=== PATIENT | male | born 1990 | race African-American/Black ===

== ENCOUNTER 2018-05-12 17:06 | Emergency (ER) | payer MEDICAID ==
[~2018-05-12] VITALS: Ht 188 cm; Wt 100.0 kg
[2018-05-12 19:19] VITALS: BP 129/82
== END 2018-05-12 19:38 | disposition home or self-care (01) ==
LOC: EMS 17:08
DX: F41.9 Anxiety disorder, unspecified (principal); R20.0 Anesthesia of skin
CPT/HCPCS: 93005; 99283

== ENCOUNTER 2018-05-22 07:51 | Emergency (ER) | payer MEDICAID ==
[~2018-05-22] VITALS: Ht 198.1 cm; Wt 102.3 kg
[2018-05-22] MEDS ORDERED: DEXAMETHASONE SOD PHOS 4 MG/ML 5 ML VIAL IM ONE (09:15)
[2018-05-22] MEDS ORDERED: DiphenhydrAMINE HCL 25 MG CAPSULE PO ONE (09:15)
[2018-05-22 09:34] VITALS: BP 130/78
== END 2018-05-22 09:43 | disposition home or self-care (01) ==
LOC: EMS 07:55
DX: L23.7 Allergic contact dermatitis due to plants, except food (principal); L29.9 Pruritus, unspecified
CPT/HCPCS: 96372; 99283; J1100

== ENCOUNTER 2018-06-02 18:31 | Emergency (ER) | payer MEDICAID ==
[~2018-06-02] VITALS: Ht 198.1 cm; Wt 100.0 kg
[2018-06-02] MEDS ORDERED: MORPHINE SULFATE 4 MG/ML SYRINGE IVP ONE (19:15)
[2018-06-02] MEDS ORDERED: POVIDONE-IODINE 10% 15 ML SOLUTION UD TP ONE (20:15)
[2018-06-02] MEDS ORDERED: BACITRACIN 0.9 GM PACKET OINTMENT TP ONE (20:15)
[2018-06-02] MEDS ORDERED: PERTUSS(ACELL),DIPH,TET VAC/PF 0.5 ML VIAL IM ONE (20:30)
[2018-06-02 22:54] VITALS: BP 130/88
== END 2018-06-02 22:57 | disposition home or self-care (01) ==
LOC: EMS 18:31
DX: S43.52XA Sprain of left acromioclavicular joint, initial encounter (principal); S90.111A Contusion of right great toe without damage to nail, initial encounter; S40.012A Contusion of left shoulder, initial encounter; S80.812A Abrasion, left lower leg, initial encounter; F12.90 Cannabis use, unspecified, uncomplicated; F17.210 Nicotine dependence, cigarettes, uncomplicated; V23.4XXA Motorcycle driver injured in collision with car, pick-up truck or van in traffic accident, initial encounter; Y93.89 Activity, other specified; Y92.89 Other specified places as the place of occurrence of the external cause; Y99.8 Other external cause status
CPT/HCPCS: 70450; 72125; 72128; 72131; 73030; 73564; 73660; 90471; 90715; 96374; 99285; J2270